=== PATIENT | female | born 1955 | race Caucasian/White ===

== ENCOUNTER 2016-09-24 16:32 | Emergency (ER) | payer OTHER ==
[~2016-09-24] VITALS: Ht 172.7 cm; Wt 60.0 kg
[2016-09-24 16:34] VITALS: BP 116/65; PULSE 75; RESP 12; TEMP 97.9; O2SAT 95
--- NOTE | 2016-09-24 16:41 | PD ---
Physical Exam Date Seen by Provider: Sep 24, 2016 Time Seen by Provider: 16:39 Narrative 60 YOWF WITH L WRIST FX SENT IN FOR ADMISSION.NO N/V CHANGE VSS, AWAITING BED PLACEMENT Data Data Last Documented VS Vital Signs Date Time Temp Pulse Resp B/P Pulse Ox O2 Delivery O2 Flow Rate FiO2 09/24/16 16:34 97.9 75 12 116/65 95 MDM Medical Record Reviewed: Yes Supervised Visit with CHRISTY: Yes Odin La Sep 24, 2016 16:41
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
[2016-09-24] MEDS ORDERED: VITA500T PO (18:31)
[2016-09-24] MEDS ORDERED: VITA400C2 PO (18:31)
[2016-09-24] MEDS ORDERED: PERC5TAB12 PO ×2 (18:31→20:20)
[2016-09-24] MEDS ORDERED: oxyCODONE/ACETAMINOPHEN 5 MG/325 MG TAB PO ONE (19:30)
--- NOTE | 2016-09-24 19:41 | RADRPT ---
EXAM DATE/TIME: 09/24/2016 18:59 [facility] COMPARISON: WRIST LEFT LIMITED (AP & LAT), September 24, 2016, 18:08. INDICATIONS : Fall Friday, evaluate fracture. RADIATION DOSE: 8.19 CTDIvol (mGy) MEDICAL HISTORY : None SURGICAL HISTORY : None. ENCOUNTER: Initial ACUITY: 1 day PAIN SCALE: 7/10 LOCATION: Left Wrist TECHNIQUE: Volumetric scanning of the wrist was performed. Using automated exposure control and adjustment of t he mA and/or kV according to patient size, radiation dose was kept as low as reasonably achievable to obtain optimal diagnostic quality images. FINDINGS: There is a mildly comminuted fracture of the distal radius with a horizontal component through the me taphysis and a longitudinal component which extends into the radiocarpal joint near the lunate. No b ridging callus seen. No significant impaction. There is moderate dorsal angulation of the distal ra dius with respect to the shaft. There is also a thin lucency through the anterior cortex of the dist al ulna which is best seen on axial images; this fracture is nondisplaced and non-angulated. This do es not involve the styloid, but rather the metaphysis at the base of the styloid. The ulnar fracture is not appreciated on conventional radiographs. The carpus is in normal alignment. CONCLUSION: 1. Comminuted distal radial fracture with an intra-articular component near the lunate and a horizont al component to the metaphysis. Moderate dorsal angulation. 2. Nondisplaced fracture of the anterior distal metaphysis of the distal ulna; this fracture is not d iscernible on conventional radiographs. Bhupendra Vargas MD on September 24, 2016 at 19:36 Board Certified Radiologist. This report was verified electronically.
[2016-09-24] MEDS ORDERED: IBUP-232 PO (20:20)
== END 2016-09-24 20:52 | disposition home or self-care (01) ==
LOC: NEPA 16:32
DX: S62.102A Fracture of unspecified carpal bone, left wrist, initial encounter for closed fracture (principal); W03.XXXA Other fall on same level due to collision with another person, initial encounter; Y92.89 Other specified places as the place of occurrence of the external cause
CPT/HCPCS: 29125; 73100; 73200

== ENCOUNTER → 2016-09-27 | Day surgery (SDC) | payer OTHER ==
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
[~2016-09-27] VITALS: Ht 172.7 cm; Wt 58.1 kg
[~2016-09-27] MED LIST: *RESP: ALBUTEROL 2.5 MG/3 ML NEB (PRN) PERIprocedural Use ONLY NEB ONE; *morphine SULFATE 8 MG/ML PERIprocedure ONLY ONE; ACETAMINOPHEN/HYDROcodone 325 MG/5 MG TAB PO PRN; CHLORHEXIDINE GLUCONATE 2 % 1 PACK (2 CLOTHS) TOPICAL PRN; CHLORHEXIDINE GLUCONATE 4% SOLN 120 ML BTL TOPICAL SCH; CLINDAMYCIN 900 MG/NS 100 ML IV SCH; DEXAMETHASONE SOD PHOS 4 MG/ML VIAL ONE; FAMOTIDINE 20 MG/2 ML VIAL ONE; GENTAMICIN SULFATE 80 MG/2 ML VIAL ONE; IBUP-232 PO; INSULIN HUMAN REGULAR 1,000 UNITS/10 ML VIAL SQ PRN; LACTATED RINGER'S 1000 ML INJ 1,000 ML IV ONE; LACTATED RINGER'S 1000 ML IV PRN; MEPERIDINE HCL 50 MG/ML VIAL IM PRN; METOPROLOL TARTRATE 25 MG TAB PO PRN; MIDAZOLAM HCL 2 MG/2 ML VIAL ONE; NEOSTIGMINE 3 MG/3 ML SYR IV ONE; ONDANSETRON HCL 4 MG/2 ML VIAL IV PUSH ONE; ONDANSETRON HCL 4 MG/2 ML VIAL IV PUSH PRN; PERC5TAB12 PO; POVIDONE IODINE 5% (ANTISEPSIS KIT) 4 APPLICATIONS EACH NARE PRN; PROPOFOL 200 MG/20 ML AMP IV ONE; SODIUM CHLORID 0.9% 500 ML IV PRN; SODIUM CHLORIDE 0.9% INJ 100 ML ONE; VITA400C2 PO; VITA500T PO; ePHEDrine/NS 25 MG/5 ML SYR IV ONE; fentaNYL CITRATE 250 MCG/5 ML AMP ONE
[2016-09-27 08:46] VITALS: BP 114/69; PULSE 72; RESP 16; TEMP 98.3; O2SAT 96
[2016-09-27 09:12] LABS: BASOPHIL % 0.4 % (0.0-2.0); EOSINOPHIL # 0.1 TH/MM3 (0-0.4); EOSINOPHIL % 1.5 % (0.0-4.0); HEMATOCRIT 43.5 % (35.0-46.0); HEMO FLAGS DIFF FINAL; LYMPHOCYTE # 1.8 TH/MM3 (1.0-4.8); MEAN CELL VOLUME 96.2 FL (80.0-100.0); MEAN CORPUSCULAR HEMOGLOBIN 32.7 PG (27.0-34.0); MONO % 5.9 % (0.0-8.0); NEUT % 73.2 % (16.0-70.0); PLATELET COUNT 183 TH/MM3 (150-450); RED BLOOD COUNT 4.52 MIL/MM3 (4.00-5.30); WHITE BLOOD COUNT 9.6 TH/MM3 (4.0-11.0)
[2016-09-27 09:20] LABS: APTT (PATIENT) 28.7 SEC (24.3-30.1); PROTHROMBIN TIME - PATIENT 10.9 SEC (9.8-11.6)
[2016-09-27 09:24] LABS: ANION GAP 8 MEQ/L (5-15); AST (GOT) 18 U/L (15-37); BLOOD UREA NITROGEN 15 MG/DL (7-18); CHLORIDE 105 MEQ/L (98-107); GLOMERULAR FILTRATION RATE 61 ML/MIN (>89); SODIUM (NA) 140 MEQ/L (136-145)
[2016-09-27 09:26] LABS: BLOOD, URINE NEG (NEG); COMMENT (UR) CULT NOT INDICATED; CULTURE IF INDICATED CULT NOT INDICATED; GLUCOSE,URINE NEG (NEG); KETONE, URINE NEG (NEG); MUCUS URINE FEW /lpf (OCC); NITRITE,URINE NEG (NEG); SQUAMOUS EPITHELIAL CELL URINE 1 /hpf (0-5); URINE COLOR YELLOW (YELLW/STRAW)
[2016-09-27 09:27] LABS: ALKALINE PHOSPHATASE 91 U/L (45-117); ALT (GPT) 24 U/L (10-53); TOTAL BILIRUBIN ADULT 0.5 MG/DL (0.2-1.0)
--- NOTE | 2016-09-27 13:44 | EKG ---
Date Performed: 09/27/2016 Time Performed: 08:40:58 PTAGE: 60 years EKG: Sinus rhythm NORMAL ECG NO PREVIOUS TRACING DOCTOR: Ben August Interpretating Date/Time 09/27/2016 13:38:37
[2016-09-27 14:15] VITALS: BP 97/63; PULSE 88; RESP 18; TEMP 98.5; O2SAT 94
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
--- NOTE | 2016-09-30 10:31 | MP ---
cc: Jose Enrique HUTCHISON M.D. DATE OF SURGERY: 09/27/2016 PREOPERATIVE DIAGNOSIS Displaced interarticular fracture left distal radius. POSTOPERATIVE DIAGNOSIS Displaced interarticular fracture left distal radius. SURGERY PERFORMED Open reduction, internal fixation left distal radius fracture with Synthes plate and screws. SURGEON Dr. Hutchison. BONE COOKING OPERATOR Kristen Dominguez. ANESTHESIA LMA. PROCEDURE The patient was brought to the operating room, placed on the operating table in the supine position. After successful induction of general anesthesia, the patient's left wrist and forearm were prepped and draped in usual manner. The tourniquet was inflated. The left upper arm set to 250 mmHg pressure exsanguination of the left upper extremity. A volar incision was then made only to the radial artery staying radial to the palmaris longus, carried up to the proximal wrist flexor crease 4 inches in length, carried down to subcutaneous tissue through fascia, through the interval between the two, to the distal radius, periosteum removed with the periosteal elevator identifying the fracture, reducing the fracture and putting the volar Synthes plate with six distal screws, two proximal screws. After plate was fixated and locked, the guide was removed and AP and lateral views revealed excellent reduction of fracture with plate and screws in excellent position and within confines of bone and not into the joint. The tourniquet was deflated, total tourniquet time being 41 minutes at 250 mmHg pressure. The wound was irrigated copiously with antibiotic solution. Meticulous hemostasis was achieved. The subcutaneous tissue was approximated using interrupted running 2-0 and 3-0 Monocryl sutures, Steri-Strips, sterile dressing and volar splint. Estimated blood loss was 10 ccs. Sponge and suture count were correct. The patient tolerated the procedure well and left the operating room in satisfactory condition. MD CHRISTIANO Rodriguez/JOMAR /12:36 PM /10:19 AM
== END | disposition home or self-care (01) ==
LOC: HSDC 08:00
PROVIDERS: ATTEND Surgery
DX: S52.502A Unspecified fracture of the lower end of left radius, initial encounter for closed fracture (principal); F17.210 Nicotine dependence, cigarettes, uncomplicated; Z01.810 Encounter for preprocedural cardiovascular examination; Z88.0 Allergy status to penicillin; W19.XXXA Unspecified fall, initial encounter
CPT/HCPCS: 01830; 25609; 73100; 76000; 80053; 81001; 85025; 85610; 85730; 93005; 94640; 94664; C1713; J1100; J1580; J2250; J2270; J2405; J2710; J3010; J7120; J7613